=== PATIENT | female | born 1990 | race Caucasian/White ===

== ENCOUNTER 2018-07-08 15:52 | Emergency (ER) | payer OTHER ==
[2018-07-08 16:18] VITALS: BP 125/79; PULSE 110; RESP 18; TEMP 98.2
[2018-07-08 18:06] LABS: Basophils % (A) 0 %; Eosinophils # (A) 0.4 k/uL (0-0.7); Eosinophils % (A) 4 %; HCT 40.7 % (34.0-46.0); HGB 13.5 gm/dL (11.4-16.0); Lymphocytes # (A) 1.8 k/uL (1.0-4.8); Lymphocytes % (A) 19 %; MCH 29.8 pg (25.0-35.0); MCHC 33.1 g/dL (31.0-37.0); Mean Platelet Volume 8.8; Monocytes % (A) 10 %; Neutrophils # (A) 6.3 k/uL (1.3-7.7); Neutrophils % (A) 64 %; Platelet Count 172 k/uL (150-450); RBC 4.52 m/uL (3.80-5.40); RDW 13.7 % (11.5-15.5); WBC 9.8 k/uL (3.8-10.6)
[2018-07-08 18:16] LABS: ALT 32 U/L (9-52); AST 33 U/L (14-36); Albumin 4.5 g/dL (3.5-5.0); Alkaline Phosphatase 63 U/L (38-126); Amylase 41 U/L (30-110); Anion Gap 10 mmol/L; Blood Urea Nitrogen 16 mg/dL (7-17); Calcium 10.2 mg/dL (8.4-10.2); Carbon Dioxide 28 mmol/L (22-30); Chloride 101 mmol/L (98-107); Glucose 53 mg/dL (74-99); Lipase 51 U/L (23-300); Potassium 4.2 mmol/L (3.5-5.1); Sodium 139 mmol/L (137-145); Total Bilirubin 0.5 mg/dL (0.2-1.3); Total Protein 7.6 g/dL (6.3-8.2)
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
== END 2018-07-08 19:10 | disposition home or self-care (01) ==
LOC: EC 15:52
DX: Z00.00 Encounter for general adult medical examination without abnormal findings (principal); F17.200 Nicotine dependence, unspecified, uncomplicated; Z79.51 Long term (current) use of inhaled steroids; Z79.899 Other long term (current) drug therapy; Z91.040 Latex allergy status; Z88.6 Allergy status to analgesic agent
CPT/HCPCS: 36415; 80053; 80164; 82150; 83690; 85025; 99283

== ENCOUNTER 2022-07-25 12:55 | Inpatient (IN) | payer MEDICAID, OTHER ==
[2022-07-25] MEDS ORDERED: MAG HYDROX/AL HYDROX/SIMETH 30 ML CUP PO PRN (13:07)
[2022-07-25] MEDS ORDERED: HALOPERIDOL LACTATE 5 MG/ML 1 ML VIAL IM PRN (13:07)
[2022-07-25] MEDS ORDERED: haloperidoL 5 MG TAB PO PRN (13:07)
[2022-07-25] MEDS ORDERED: MAGNESIUM HYDROXIDE 2,400 MG/10 ML CUP PO PRN (13:07)
[2022-07-25] MEDS: clonazePAM 1 MG TAB PO PRN (19:40)
[2022-07-25] MEDS: NICOTINE GUM (POLACRILEX) 2 MG GUM BUCCAL PRN (20:03)
[2022-07-25] MEDS: traZODone HCL 50 MG TAB PO SCH (22:52)
[2022-07-25] MEDS ORDERED: BUTALB/APAP/CAFF 50-325-40MG TAB PO STA (23:15)
--- NOTE | 2022-07-26 00:41 | P.CONS ---
History of Present Illness - Reason for Consult Consult date: 07/26/22 - History of Present Illness Patient is a 32-year-old female with a PMH of POTS syndrome and multiple psychiatric illnesses including bipolar disorder and schizophrenia who had presented to the emergency room at [facility] with complaints of worsening mental health requiring assistance. The patient was transferred to [facility] unit where she was evaluated. The patient reports that she has been undergoing a lot of social stressors recently which has caused a tremendous strain on her mental health. She denied any physical complaints at the time of interview. She reports taking medications for her pots syndrome as well as taking Fioricet for migraines. She denied experiencing chest discomfort, shortness of breath, fever, chills, cough, nausea, vomiting, abdominal pain, diarrhea. Reports smoking half pack of cigarettes daily. Denied substance use or alcohol use. Review of systems: Pertinent positives and negatives as discussed in HPI, a complete review of systems was performed and all other systems are negative. Physical examination: General: non toxic, no distress, appears at stated age, overweight Derm: no unusual rashes/lesions, warm Head: atraumatic, normocephalic, symmetric Eyes: EOMI, no lid lag, anicteric sclera, pupils equal round reactive to light ENT: Nose and ears atraumatic Neck: No cervical lymphadenopathy, trachea midline, supple Mouth: no lip lesion, mucus membranes moist Cardiovascular: S1S2 reg, no murmur, positive dorsalis pedis pulse bilateral, no edema Lungs: CTA bilateral, no rhonchi, no rales, no accessory muscle use Abdominal: soft, nontender to palpation, no guarding Ext: muscle strength 5 out of 5 in all 4 extremities grossly, no gross muscle atrophy, no contractures, Neuro: CN II-XI grossly intact, no gross focal neuro deficits Psych: Alert, oriented, appropriate affect Assessment/plan POTS syndrome -Continue with home meds once reconciled Tobacco abuse -Advised on the importance of cessation Bipolar disorder -As per psychiatry Past Medical History Past Medical History: No Reported History History of Any Multi-Drug Resistant Organisms: None Reported Past Surgical History: Section Smoking Status: Current every day smoker Medications and Allergies Home Medications Medication Instructions Recorded Confirmed Type ALPRAZolam [Xanax] 0.25 mg PO DAILY PRN 07/08/18 07/08/18 History Acetaminophen Tab [Tylenol Tab] 650 mg PO Q6H PRN 07/08/18 07/08/18 History Divalproex Sodium [Depakote] 1,500 mg PO HS 07/08/18 07/08/18 History Fluticasone Nasal [place] [Flonase 1 spray EA NOSTRIL DAILY 07/08/18 07/08/18 History Nasal [place]] Ibuprofen [Motrin Ib] 200 mg PO Q6HR PRN 07/08/18 07/08/18 History Loratadine [Claritin] 10 mg PO DAILY PRN 07/08/18 07/08/18 History OLANZapine [ZyPREXA] 15 mg PO HS 07/08/18 07/08/18 History Pamprin 1 tab PO DAILY PRN 07/08/18 07/08/18 History Sodium Chloride [Saline Nasal 1 spray EA NOSTRIL DAILY PRN 07/08/18 07/08/18 History [place]] Allergies Allergy/AdvReac Type Severity Reaction Status Date / Time buspirone [From BuSpar] Allergy Unknown Verified 07/25/22 13:06 latex Allergy Rash/Hives Verified 07/08/18 18:00 naproxen Allergy Rash/Hives Verified 07/08/18 18:00 Physical Exam Vitals: Vital Signs Temp Pulse Resp BP 07/25/22 19:08 97.4 F L 78 16 123/61 Intake and Output 07/25/22 07/25/22 07/26/22 14:59 22:59 06:59 Other: Weight 77 kg 79.379 kg
[2022-07-26] MEDS: carBAMazepine 100 MG TAB.ER.12H PO SCH ×2 (08:06→20:30)
[2022-07-26] MEDS: clonazePAM 1 MG TAB PO PRN ×3 (08:06→20:30)
[2022-07-26] MEDS: NICOTINE GUM (POLACRILEX) 2 MG GUM BUCCAL PRN ×3 (08:06→18:28)
[2022-07-26] MEDS: ACETAMINOPHEN TAB 325 MG TAB PO PRN (08:18)
[2022-07-26 08:19] LABS: ALT 31 U/L (4-34); AST 29 U/L (14-36); Albumin 4.4 g/dL (3.5-5.0); Alkaline Phosphatase 93 U/L (38-126); Bilirubin, Delta 0.3 mg/dL (0.0-0.2); Bilirubin,Unconjugated 0.1 mg/dL (0.0-1.1); Total Bilirubin 0.4 mg/dL (0.2-1.3)
[2022-07-26] MEDS ORDERED: DESVENLAFAXINE SUCCINATE 50 MG TAB.ER.24H PO SCH (09:00)
[2022-07-26] MEDS ORDERED: NICOTINE 14MG/24HR PATCH TRANSDERM SCH (09:00)
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
[2022-07-26 12:08] LABS: Chol/HDL Ratio 2.84 Ratio; LDL Cholesterol,Calculated 115.2 mg/dL (0.0-131.0); VLDL Calculation 17.68 mg/dL (5.00-40.00)
[2022-07-26] MEDS ORDERED: BUTALB/APAP/CAFF 50-325-40MG TAB PO ONE (14:07)
[2022-07-26] MEDS: traZODone HCL 50 MG TAB PO SCH (20:30)
[2022-07-26] MEDS ORDERED: traZODone HCL 50 MG TAB PO SCH (21:00)
[2022-07-27] MEDS: buPROPion XL 150 MG TAB.ER.24H PO SCH (08:24)
[2022-07-27] MEDS: clonazePAM 1 MG TAB PO PRN ×3 (08:26→20:46)
[2022-07-27] MEDS: NICOTINE GUM (POLACRILEX) 2 MG GUM BUCCAL PRN ×4 (08:26→23:14)
[2022-07-27] MEDS: carBAMazepine 100 MG TAB.ER.12H PO SCH (08:29)
[2022-07-27] MEDS ORDERED: ARIPiprazole 5 MG TAB PO SCH (09:00)
[2022-07-27] MEDS ORDERED: BUTALB/APAP/CAFF 50-325-40MG TAB PO STA (12:05)
[2022-07-27] MEDS: atenoloL 25 MG TAB PO SCH (12:11)
--- NOTE | 2022-07-27 13:15 | P.PN ---
Subjective Progress Note Date: 07/27/22 Principal diagnosis: Diagnoses: Bipolar 1 with psychosis Subjective: The patient says she was able to sleep. She says that although Tegretol was suggested prior to coming in she never took it and does not want to start it at this point. She had some Abilify yesterday and this morning and is tolerating it well. She had her first dose of Wellbutrin this morning wondered why I was just 150. I explained that we use a small dose for a couple days to get used to it and then jump it to 300 Otherwise she is positive about having "then been honest about her symptoms and hopeful that that will get her more benefit in the future. Objective she is serious, alert, cooperative, axis self-care, gait and station normal, no active psychotic responses. She has not lethargic or dizzy not have any cramps no akathisia. Assessment she seems to be tolerating the Abilify. However she only got marginal benefit on a good dose of Zyprexa's I think we'll have to take the Abilify gradually to 20 or even 30. Plan increase Abilify to 10 today and continue as indicated to increase. Co ntinue Wellbutrin for both ADHD and the depressive component of mood swings. Objective - Vital Signs Vital signs: Vital Signs Temp 97.6 F 07/27/22 10:50 Pulse 125 H 07/27/22 10:50 Resp 18 07/27/22 10:50 BP 113/67 07/27/22 10:50 Pulse Ox 97 07/27/22 10:50 FiO2
[2022-07-27] MEDS ORDERED: BUTALB/APAP/CAFF 50-325-40MG TAB PO ONE (15:45)
[2022-07-27] MEDS: ACETAMINOPHEN TAB 325 MG TAB PO PRN (19:29)
[2022-07-27] MEDS: traZODone HCL 50 MG TAB PO SCH (21:18)
[2022-07-27] MEDS ORDERED: MELATONIN 5 MG TABLET PO PRN (23:25)
[2022-07-28] MEDS: NICOTINE GUM (POLACRILEX) 2 MG GUM BUCCAL PRN ×3 (08:55→18:09)
[2022-07-28] MEDS: buPROPion XL 150 MG TAB.ER.24H PO SCH (08:55)
[2022-07-28] MEDS: atenoloL 25 MG TAB PO SCH (08:55)
[2022-07-28] MEDS: clonazePAM 1 MG TAB PO PRN (08:56)
[2022-07-28] MEDS ORDERED: ARIPiprazole 10 MG TAB PO SCH (09:00)
[2022-07-28] MEDS: ACETAMINOPHEN TAB 325 MG TAB PO PRN (09:01)
--- NOTE | 2022-07-28 11:24 | P.PN ---
Progress Note - Text Progress Note Date: 07/28/22 Interval History: Patient was seen sitting in on group today and was directable and agreeable to speak with radio script writer in the office. Patient claims that she is doing a bit better since coming to the hospital. She claims that she was transferred from [place]. She states that the Abilify has been helping with her "delusions" and claims that she spoke with the over the weekend psychiatrist about these. She states that she is not having "bizarre thinking" any longer. She does claim that her mood and anxiety have been improving since being in the hospital. She claims that she was able to sleep better last night. She does state that the Fabianfvishal makes her tired during the day and requested to have a change to nighttime. At this time patient denies any suicidal or homical ideations, intent or plan. Patient denies any auditory, visual hallucinations and denies any paranoia or delusions. Patient denies any side effects from the medications and has been compliant with meds. Mental Status Exam: General Appearance: Patient appears to be stated age is alert, directable, and attempts to be cooperative. Behavior: Patient is calmly seated without any agitated behavior. Speech: Patient's speech is fluent and nonpressured. [place]. Mood/Affect: Mood is improving mildly, affect is congruent and constricted. Suicidality/Homicidality: Patient denies having any suicidal or homicidal ideation intent or plan. Perceptions: Patient denies any visual hallucinations and denies any auditory hallucinations Though content/process: There is no evidence of any delusional thought content and thought process is linear and goal-directed. Rambles at times. Memory and concentration: AOX3, grossly intact for the purposes of this session Judgment and insight: Poor, Improving mildly Assessment Psychosis unspecified, likely either schizoaffective disorder versus bipolar with psychotic features Nicotine dependence Plan: -Patient continues to meet criteria for inpatient psychiatric admission for symptom stabilization and safety. Patient has signed adult voluntary form and medication consent and was placed in patient's chart. -Medications: Changed Abilify by mouth to 10 mg daily at bedtime for mood stabilization/psychosis, trazodone 150 mg daily at bedtime for insomnia/mood, melatonin 5 mg daily at bedtime when necessary for sleep. Vistaril when necessary for anxiety. Klonopin decreased down to 0.5 mg twice a day when necessary for anxiety. Wellbutrin XL 300 mg daily for mood. -When necessary Haldol for agitation/aggression. -NRT - nicotine patch -SW on board for discharge planning. Encouraged the patient to participate in milieu. Likely discharge back home and one to 2 days.
[2022-07-28] MEDS: BUTALB/APAP/CAFF 50-325-40MG TAB PO PRN (11:27)
[2022-07-28] MEDS: clonazePAM 0.5 MG TAB PO PRN ×2 (15:33→20:28)
[2022-07-28] MEDS: hydrOXYzine pamoate 25 MG CAP PO PRN (15:35)
[2022-07-28] MEDS ORDERED: LORazepam 2 MG/ML INJ IM STA (18:27)
[2022-07-28] MEDS: traZODone HCL 50 MG TAB PO SCH (20:28)
[2022-07-28] MEDS: ARIPiprazole 10 MG TAB PO SCH (20:28)
[2022-07-29] MEDS: atenoloL 25 MG TAB PO SCH (08:21)
[2022-07-29] MEDS: buPROPion XL 300 MG TAB.ER.24H PO SCH (08:21)
[2022-07-29] MEDS: clonazePAM 0.5 MG TAB PO PRN ×2 (08:22→19:35)
--- NOTE | 2022-07-29 10:33 | P.PN ---
Progress Note - Text Progress Note Date: 07/29/22 Interval History: Patient was seen in her bed this morning. She claims that she is doing a bit better with regards to her anxiety and mood today. She was fairly constricted in her affect. She apparently was agitated yesterday and required IM haldol yesterday evening. Patient states that she was feeling irritable than. She was not endorsing any delusions today. She claims that she was able to sleep last night after getting the prns. Patient was fairly focused on discharge. She claims that she does feel tired this morning. She claims that she wants to keep the medications the way they are in the same doses. At this time patient denies any suicidal or homical ideations, intent or plan. Patient denies any auditory, visual hallucinations and denies any paranoia or delusions. Patient denies any side effects from the medications and has been compliant with meds. Mental Status Exam: General Appearance: Patient appears to be stated age is alert, directable, and attempts to be cooperative. Behavior: Patient is calmly seated without any agitated behavior. Speech: Patient's speech is fluent and nonpressured. [place]. Mood/Affect: Mood is improving mildly, affect is congruent and constricted. Suicidality/Homicidality: Patient denies having any suicidal or homicidal ideation intent or plan. Perceptions: Patient denies any visual hallucinations and denies any auditory hallucinations Though content/process: There is no evidence of any delusional thought content and thought process is linear and goal-directed. [place]. Memory and concentration: AOX3, grossly intact for the purposes of this session Judgment and insight: Poor, Improving mildly Assessment Psychosis unspecified, likely either schizoaffective disorder versus bipolar with psychotic features Nicotine dependence Plan: -Patient continues to meet criteria for inpatient psychiatric admission for symptom stabilization and safety. Patient has signed adult voluntary form and medication consent and was placed in patient's chart. -Medications: Abilify by mouth to 10 mg daily at bedtime for mood stabili zation/psychosis, trazodone 150 mg daily at bedtime for insomnia/mood, melatonin 5 mg daily at bedtime when necessary for sleep. Vistaril when necessary for anxiety. Klonopin 0.5 mg twice a day when necessary for anxiety. Wellbutrin XL 300 mg daily for mood. -When necessary Haldol for agitation/aggression. -NRT - nicotine patch -SW on board for discharge planning. Encouraged the patient to participate in milieu. Likely discharge back home tomorrow if patient does not have any behavioral episodes or require prns.
[2022-07-29] MEDS: BUTALB/APAP/CAFF 50-325-40MG TAB PO PRN (12:54)
[2022-07-29] MEDS: NICOTINE GUM (POLACRILEX) 2 MG GUM BUCCAL PRN ×2 (13:48→18:01)
[2022-07-29] MEDS: hydrOXYzine pamoate 25 MG CAP PO PRN (15:34)
[2022-07-29] MEDS: ACETAMINOPHEN TAB 325 MG TAB PO PRN (19:34)
[2022-07-29] MEDS: traZODone HCL 50 MG TAB PO SCH (20:32)
[2022-07-29] MEDS: ARIPiprazole 10 MG TAB PO SCH (20:32)
[2022-07-30] MEDS: buPROPion XL 300 MG TAB.ER.24H PO SCH (08:16)
[2022-07-30] MEDS: atenoloL 25 MG TAB PO SCH (08:16)
[2022-07-30] MEDS: clonazePAM 0.5 MG TAB PO PRN (08:18)
[2022-07-30] MEDS: NICOTINE GUM (POLACRILEX) 2 MG GUM BUCCAL PRN (08:18)
[2022-07-30 08:20] VITALS: BP 105/69; PULSE 87; RESP 16; TEMP 97
[2022-07-30] MEDS: BUTALB/APAP/CAFF 50-325-40MG TAB PO PRN (09:16)
--- NOTE | 2022-07-30 10:30 | P.DS ---
Providers Date of admission: 07/25/22 18:56 Expected date of discharge: 07/30/22 Attending physician: Reza Kaufman MD Consults: 07/25/22 13:07 Consult Physician Routine Consulting Provider: Arlyn Ta Consult Reason/Comments: H & P w/medical management Do you want consulting provider notified?: Yes, Notify in am Primary care physician: Stated None - Discharge Diagnosis(es) (1) Unspecified psychosis Current Visit: Yes Status: Acute Priority: High Hospital Course: Admission HPI: Admission note was completed by Dr Mei "The patient says, "I've never told anyone this before but I've got some real paranoid problems." She feels like people are looking at her talking about her planning to control her. She can't keep a job because he had an anxiety of being out in public makes her feel faint. She worries that her food might be poisoned and that the government might be piping poisons into the room through the air ducts. She has experienced people touching her and no one is there. She does not see things or hear voices. She has been talking about life not being worth living the way things are now. History of present illness the patient came to Hospital with a petition insert based on the suicidal thoughts and her feeling overwhelmed. She says that the Pristiq has helped her focus better at 50 mg she also has found Adderall helpful especially the short acting 20 twice a day. She also finds she sleeps better on trazodone 150. And Klonopin 1 mg twice a day. She also takes Zyprexa 15 mg twice a day and isn't sure it helps. In addition to symptoms above she has significant tendency to misplace things and has trouble paying attention easily distracted. She knows she is very smart but doesn't earn the benefits that should float from that. She did find that the Adderall helped her focus better." Hospital course: Upon admission to the unit patient was directable and agreeable to commence treatment and signed adult voluntary form. Patient got along well with other patients on the unit and followed unit protocol. Patient was compliant with the medications and denied any side effects throughout hospital course. Patient was started on Abilify increased to 10 mg daily for psychosis/mood stabilization, trazodone 150 mg daily at bedtime for insomnia/mood, melatonin 5 mg daily at bedtime when necessary for sleep, Vistaril when necessary for anxiety, Klonopin 0.5 mg twice a day when necessary for anxiety, Wellbutrin XL 300 mg daily for mood. Patient spoke of her stressors and engaged in therapy both group and individual. Patient was also seen by medical team for history and physical exam. Throughout the course of the hospitalization patient gradually improved with regards to psychosis, mood and anxiety, sleep and returned back to their baseline level of functioning. On the day of discharge patient denied any suicid al or homicidal ideations intent or plan denied any auditory or visual hallucinations. Patient endorsed wanting to live for her health and her future. The patient denied any access to guns or weapons. Patient denied any paranoia and did not endorse any delusions. Patient does not have a significant history of substance abuse and was counseled on abstaining from all substances including alcohol and marijuana. Patient was also counseled on the medications and need for regular compliance and was encouraged to follow-up with their outpatient appointment for mental health and also for primary care. Prior to discharge a family meeting will be arranged by social media specialist to answer any questions and ensure safety upon discharge. Mental status exam: General Appearance: Patient appears to be stated age is alert, pleasant, and cooperative. Patient is in no acute distress and has improved hygiene and grooming Behavior: Patient is calmly seated without any agitated behavior. Speech: Patient's speech is fluent and nonpressured. Mood/Affect: Patient reports their mood is "better", affect is congruent and constricted Suicidality/Homicidality: Patient denies having any suicidal or homicidal ideation intent or plan. Perceptions: Patient denies any auditory or visual hallucinations. Though content/process: There is no evidence of any delusional thought content and thought process is linear and goal-directed. Memory and concentration: AOX3, grossly intact for the purposes of this session. Can spell "WORLD" backwards correctly. Judgment and insight: chronically poor, however has improved with guarded prognosis Impression: Psychosis unspecified, rule out schizoaffective disorder versus bipolar disorder with psychotic features Plan: -Continue with discharge today as patient has improved and stabilized psychiatrically and is not currently an imminent threat to herself and/or others. Patient will remain at chronically elevated risk for harm to self and/or others due to her impulsivity. -Continue medications: Abilify 10 mg daily for mood stabilization/psychosis, Wellbutrin XL 300 mg daily, trazodone 150 mg daily at bedtime for insomnia/mood, melatonin daily at bedtime when necessary for sleep, Vistaril 25 mg daily when necessary for anxiety, we will give a 3 day supply of Klonopin 0.5 mg twice a day when necessary for anxiety. -Patient was counseled on the need for medication compliance and appropriate follow-up at mental health and also primary care for medical issues. Patient verbalized understanding and agreed. -Social work to arrange for and conduct family meeting to ensure safety upon discharge and answer any questions/concerns. Social work also to arrange for patients follow up appointments [facility] for psychiatric care along with follow up with primary care provider. -Patient counseled on abstaining from recreational drugs and marijuana and alcohol. Was informed/educated on the adverse effects on their physical and mental health. Patient verbally agreed and understood. -Patient was instructed to return to the hospital or seek immediate medical care if their psychiatric or medical symptoms do worsen or reoccur. Allergies Allergy/AdvReac Type Severity Reaction Status Date / Time buspirone [From BuSpar] Allergy Unknown Verified 07/25/22 13:06 latex Allergy Rash/Hives Verified 07/08/18 18:00 naproxen Allergy Rash/Hives Verified 07/08/18 18:[address] Glu mg/dL 116 07/26/22 07:52 Hemoglobin A1c 5.7 % (0.0-6.0) 07/26/22 07:52 Total Bilirubin 0.4 mg/dL (0.2-1.3) 07/26/22 07:52 Conjugated Bilirubin 0.0 mg/dL (0.0-0.3) 07/26/22 07:52 Unconjugated Bilirubin 0.1 mg/dL (0.0-1.1) 07/26/22 07:52 Delta Bilirubin 0.3 mg/dL (0.0-0.2) H 07/26/22 07:52 AST 29 U/L (14-36) 07/26/22 07:52 ALT 31 U/L (4-34) 07/26/22 07:52 Alkaline Phosphatase 93 U/L (38-126) 07/26/22 07:52 Total Protein 7.0 g/dL (6.3-8.2) 07/26/22 07:52 Albumin 4.4 g/dL (3.5-5.0) 07/26/22 07:52 Triglycerides 88.40 mg/dL (0.00-149.00) 07/26/22 07:52 Cholesterol 205.00 mg/dL (0.00-200.00) H 07/26/22 07:52 LDL Cholesterol, Calc 115.2 mg/dL (0.0-131.0) 07/26/22 07:52 VLDL Cholesterol, Calc 17.68 mg/dL (5.00-40.00) 07/26/22 07:52 HDL Cholesterol 72.10 mg/dL (40.00-60.00) H 07/26/22 07:52 Cholesterol/HDL Ratio 2.84 Ratio 07/26/22 07:52 TSH 1.820 mIU/L (0.465-4.680) 07/26/22 07:52 Vital Signs Temp 97.0 F L 07/30/22 07:00 Pulse 87 07/30/22 07:00 Resp 16 07/30/22 07:00 BP 105/69 07/30/22 07:00 Pulse Ox 100 07/30/22 07:00 FiO2 Patient Condition at Discharge: Stable Plan - Discharge Summary New Discharge Prescriptions: New Butalb/APAP/Caff 50-325-40Mg [Fioricet 50-325-40] 1 each PO DAILY PRN tab PRN Reason: Headache clonazePAM [KlonoPIN] 0.5 mg PO BID PRN 3 Days tab PRN Reason: Anxiety Melatonin 5 mg PO HS PRN tab PRN Reason: Insomnia Nicotine Gum (Polacrilex) [Nicorette] 2 mg BUCCAL Q4HR PRN 28 Days pieceofgum PRN Reason: Nicotine Cravings ARIPiprazole [Abilify] 10 mg PO HS 30 Days tab atenoloL [Tenormin] 25 mg PO DAILY tab traZODone HCL 150 mg PO HS #30 tablet hydrOXYzine pamoate [Vistaril] 25 mg PO DAILY PRN 30 Days cap PRN Reason: Anxiety buPROPion XL [Wellbutrin XL] 300 mg PO DAILY 30 Days tab Continue Loratadine [Claritin] 10 mg PO DAILY PRN PRN Reason: Allergy Symptoms Fluticasone Nasal [place] [Flonase Nasal [place]] 1 spray EA NOSTRIL DAILY Discontinued Acetaminophen Tab [Tylenol Tab] 650 mg PO Q6H PRN PRN Reason: Pain ALPRAZolam [Xanax] 0.25 mg PO DAILY PRN PRN Reason: Anxiety Pamprin 1 tab PO DAILY PRN PRN Reason: Pain Ibuprofen [Motrin Ib] 200 mg PO Q6HR PRN PRN Reason: Pain OLANZapine [ZyPREXA] 15 mg PO HS Divalproex Sodium [Depakote] 1,500 mg PO HS Sodium Chloride [Saline Nasal [place]] 1 spray EA NOSTRIL DAILY PRN PRN Reason: Nasal Congestion Discharge Medication List Fluticasone Nasal [place] [Flonase Nasal [place]] 1 spray EA NOSTRIL DAILY 07/08/18 [History] Loratadine [Claritin] 10 mg PO DAILY PRN 07/08/18 [History] ARIPiprazole [Abilify] 10 mg PO HS 30 Days tab 07/30/22 [Rx] Butalb/APAP/Caff 50-325-40Mg [Fioricet 50-325-40] 1 each PO DAILY PRN tab 07/30/22 [Rx] Melatonin 5 mg PO HS PRN tab 07/30/22 [Rx] Nicotine Gum (Polacrilex) [Nicorette] 2 mg BUCCAL Q4HR PRN 28 Days pieceofgum 07/30/22 [Rx] atenoloL [Tenormin] 25 mg PO DAILY tab 07/30/22 [Rx] buPROPion XL [Wellbutrin XL] 300 mg PO DAILY 30 Days tab 07/30/22 [Rx] clonazePAM [KlonoPIN] 0.5 mg PO BID PRN 3 Days tab 07/30/22 [Rx] hydrOXYzine pamoate [Vistaril] 25 mg PO DAILY PRN 30 Days cap 07/30/22 [Rx] traZODone HCL 150 mg PO HS #30 tablet 07/30/22 [Rx] Follow up Appointment(s)/Referral(s): [facility] [Other] - 1 Week (Roger Duggan 08/01/2022 @ 15:00) [facility] [Other] - 08/01/22 3:00 pm (Roger Duggan 08/01 @ 15:00) Patient Instructions/Handouts: How to Stop Smoking (ED), Psychotic Disorder (DC) Discharge Disposition: HOME SELF-CARE
== END 2022-07-30 11:57 | disposition home or self-care (01) | DRG 885 ==
LOC: 3MHU 18:56
PROVIDERS: ADMIT Psychiatry & Neurology Psychiatry; ATTEND Psychiatry & Neurology Psychiatry
DX: F29 Unspecified psychosis not due to a substance or known physiological condition (principal); R45.851 Suicidal ideations; F17.210 Nicotine dependence, cigarettes, uncomplicated; F20.9 Schizophrenia, unspecified; F31.9 Bipolar disorder, unspecified; F41.9 Anxiety disorder, unspecified; F90.9 Attention-deficit hyperactivity disorder, unspecified type; G43.909 Migraine, unspecified, not intractable, without status migrainosus; G47.00 Insomnia, unspecified; Z79.899 Other long term (current) drug therapy
CPT/HCPCS: 80061; 80076; 83036; 84443